=== PATIENT | male | born 1960 | race Caucasian/White ===

== ENCOUNTER 2016-10-12 12:14 | Inpatient (IN) | payer BC ==
[~2016-10-12] VITALS: Ht 188 cm; Wt 112.0 kg
[2016-10-12] MEDS ORDERED: DILTIAZEM BOLUS / DRIP IV STA (16:02)
[2016-10-12 16:06] VITALS: BP 134/96; PULSE 126; TEMP 36.4; O2SAT 97; Ht 188 cm; Wt 112.0 kg
[2016-10-12] MEDS ORDERED: MAGNESIUM HYDROXIDE SUSP 30 ML UDC PO PRN (16:15)
[2016-10-12] MEDS ORDERED: ACETAMINOPHEN 325 MG TAB PO PRN (16:15)
[2016-10-12] MEDS ORDERED: POLYETHYLENE (MIRALAX) 17 GM PACK PO PRN (16:15)
[2016-10-12] MEDS ORDERED: NITROGLYCERIN 0.4 MG SL PER TAB CHARGE SL PRN (16:15)
[2016-10-12] MEDS ORDERED: ALUMINUM/MAGNESIUM/SIMETH (MAALOX MAX) 30 ML UDC PO PRN (16:15)
[2016-10-12] MEDS ORDERED: ONDANSETRON INJ 2 MG/ML 2 ML VIAL IV PRN (16:15)
[2016-10-12] MEDS ORDERED: NICOTINE 14 MG/24 HR TDSY TD PRN (16:30)
[2016-10-12] MEDS: DILTIAZEM HCL INJ 125 MG in DEXTROSE 5% 100ML IV PRN (16:34)
[2016-10-12] MEDS ORDERED: TEST1INJ2 IM (16:36)
[2016-10-12] MEDS ORDERED: ZINC1CAP PO (16:36)
[2016-10-12] MEDS ORDERED: ASCO10003 PO (16:36)
[2016-10-12] MEDS ORDERED: MULT-589 PO (16:36)
[2016-10-12] MEDS ORDERED: TPRSR100 PO (16:36)
[2016-10-12] MEDS ORDERED: SIMV20TA5 PO (16:36)
[2016-10-12] MEDS ORDERED: OMEG340C PO (16:36)
[2016-10-12] MEDS ORDERED: DILT120C PO (16:36)
[2016-10-12] MEDS ORDERED: OMEP20CA9 PO (16:36)
[2016-10-12] MEDS ORDERED: EFFSR/75 PO (16:36)
[2016-10-12] MEDS ORDERED: ASPEC325 PO (16:36)
[2016-10-12] MEDS ORDERED: MGNO400 PO (16:36)
[2016-10-12] MEDS ORDERED: SODIUM CHLORIDE 0.9% 1000ML 1,000 ML IV SCH (16:45)
--- NOTE | 2016-10-12 16:50 | History and Physical ---
History & Physical Date of Service Oct 12, 2016. History & Physical admit #[id number]
[2016-10-12] MEDS: MAGNESIUM SULFATE 1GM / D5W 1 GM in PREMIXED IN D5W 100 ML IV SCH ×2 (17:06→17:57)
[2016-10-12] MEDS ORDERED: POTASSIUM CHLORIDE 10 MEQ TABCR PO ONE (17:15)
[2016-10-12] MEDS: SODIUM CHLOR 0.45% + 20MEQ KCL 1,000 ML IV SCH (17:34)
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
[2016-10-12 19:04] LABS: INR 1.4 (0.9-1.1); PARTIAL THROMBOPLASTIN RATIO 1.1; PROTHROMBIN TIME (PATIENT) 15.4 SECONDS (9.0-12.0)
[2016-10-12 19:56] VITALS: BP 147/79; PULSE 119; TEMP 36.6; O2SAT 95
[2016-10-12 19:58] VITALS: PULSE 74; O2SAT 96
[2016-10-12] MEDS: ALBUT/IPRATROP 3MG/0.5MG NEB 3 ML VIAL INH SCH (19:58)
[2016-10-12] MEDS: OMEGA-3 (PURIFIED FISH OIL) 1 GM CAP PO SCH (20:13)
[2016-10-12] MEDS: MAGNESIUM OXIDE 400 MG TAB PO SCH (20:13)
[2016-10-12] MEDS: METOPROLOL SUCC 50MG EXT REL TAB PO SCH (20:13)
[2016-10-12] MEDS: ZINC SULFATE 220 MG CAP PO SCH (20:14)
[2016-10-12] MEDS: SIMVASTATIN 20 MG TAB PO SCH (20:14)
[2016-10-12] MEDS: ENOXAPARIN 40 MG/0.4 ML SYR SC SCH (21:05)
[2016-10-12] MEDS ORDERED: hydrOXYzine HCL 10 MG TAB PO STA (22:32)
[2016-10-13] VITALS (15 sets, daily range): BP systolic 120–138; BP diastolic 78–92; PULSE 81–116; TEMP 36.2–36.4; O2SAT 91–99
[2016-10-13] MEDS: DILTIAZEM HCL INJ 125 MG in DEXTROSE 5% 100ML IV PRN ×2 (00:29→09:56)
[2016-10-13] MEDS: SODIUM CHLOR 0.45% + 20MEQ KCL 1,000 ML IV SCH ×3 (04:00→22:42)
[2016-10-13] MEDS ORDERED: NURSING VERBAL MED ORDER ONE (06:30)
[2016-10-13] MEDS ORDERED: BENZONATATE 100MG CAP PO PRN (06:30)
[2016-10-13 07:16] LABS: BASO % 0.2 %; BASO ABS # 0.02 K/uL (0-0.2); COMPLETE YES; HEMATOCRIT 45.8 % (42-52); IG% 0.7 %; LYMPH ABS # 1.24 K/uL (1.2-3.4); MEAN CORPUSCULAR HEMOGLOBIN 29.5 pg (25-34); MEAN CORPUSCULAR HGB CONC 32.1 g/dl (32-36); MEAN PLATELET VOLUME 9.8 fL (7.4-10.4); MONO % 5.1 %; PLATELET COUNT 305 K/uL (130-400); RED BLOOD COUNT 4.98 M/uL (4.7-6.1); WHITE BLOOD COUNT 12.42 K/uL (4.8-10.8)
[2016-10-13] MEDS: ALBUT/IPRATROP 3MG/0.5MG NEB 3 ML VIAL INH SCH ×4 (07:32→20:07)
[2016-10-13 07:44] LABS: BUN/CREATININE RATIO 19.5 (10-20); CALCIUM 8.2 mg/dl (8.5-10.1); CREATININE 0.76 mg/dl (0.60-1.40); POTASSIUM 4.8 mmol/L (3.5-5.1)
[2016-10-13 07:55] LABS: THYROID STIMULATING HORMONE 0.185 uIu/ml (0.300-4.500)
[2016-10-13] MEDS: ASPIRIN 325 MG ECTAB PO SCH (08:00)
[2016-10-13] MEDS: VENLAFAXINE HCL XR 75 MG CAPXR PO SCH (08:00)
[2016-10-13 08:01] LABS: ESTIMATED AVERAGE GLUCOSE 146 mg/dl; HA1C FLAG Normal (Normal)
[2016-10-13] MEDS: MAGNESIUM OXIDE 400 MG TAB PO SCH ×2 (08:01→20:03)
[2016-10-13] MEDS: OMEGA-3 (PURIFIED FISH OIL) 1 GM CAP PO SCH ×3 (08:01→20:04)
[2016-10-13] MEDS: MULTIVITAMIN TAB PO SCH (08:01)
[2016-10-13] MEDS: PANTOprazole SOD 40 MG TAB PO SCH (08:02)
[2016-10-13] MEDS: METOPROLOL SUCC 50MG EXT REL TAB PO SCH ×2 (08:02→20:04)
[2016-10-13] MEDS: ASCORBIC ACID 500 MG TAB PO SCH (08:03)
[2016-10-13] MEDS: ZINC SULFATE 220 MG CAP PO SCH ×2 (08:03→20:04)
[2016-10-13] MEDS: LEVOFLOXACIN 750 MG TAB PO SCH (09:51)
--- NOTE | 2016-10-13 16:13 | Cardiology Consultation ---
Cardiology Consultation Date of Consultation: Oct 13, 2016. Requesting Physician: Dr. Carter Reason for Consultation: AF with RVR Pt evaluation today including: conversation w/ patient, physical exam, chart review, lab review, review of studies, review of inpatient medication list History of Present Illness This is a very pleasant 56 yo gentleman with a history of what sounds like SVT for which he had ablation in [place] around 1991, that sounds as though it was successful and he has had no recurrence of that particular arrhythmia. He has however had AF since about 8 yrs ago, it does not bother him much but he believes it to be permanent. He has been followed in [place], he has been on Xarelto in the past but it was stopped evidently due to a low chads-vasc score, not for bleeding.. He had a cardiac catheterization performed in 2012 with normal coronaries. He is not generally aware of his arrhythmia. He presented with 2 wks of SOB, thought to be URI I think. Transferred for care. Now somewhat SOB with exertion, no palpitations. No CP. Past Medical/Surgical History (1) Afib (2) Hyperlipidemia (3) Status post ablation of accessory bypass tract (4) History of left heart catheterization (5) Tobacco abuse Family History Patient reports no known family medical history. Social History Smoking Status: Current Every Day Smoker History of Alcohol Use: Yes (DRINKS 2-3 TIMES A WEEK) Review of Systems Constitutional: No fever, No weight loss, No weakness Respiratory: + see HPI, + dyspnea on exertion, No cough, No wheezing, No shortness of breath Cardiac: + see HPI, + palpitations, No chest pain, No orthopnea, No PND, No edema Abdomen: No pain, No nausea, No vomiting, No diarrhea, No GI bleeding Male : No urinary frequency, No nocturia more than once/night, No slowing stream, No sexual dysfunction Neurologic: No paralysis, No weakness, No numbness/tingling, No balance problems Heme: No abnormal bleeding/bruising, No clotting problems Endo: No fatigue Skin: No problem reported All Other Systems: Reviewed and Negative Allergies Coded Allergies: No Known Allergies (Unverified , 10/12/16) Medications Current Inpatient Medications Medications (Trade) Dose Ordered Sig/Jackie Route Start Time Stop Time Status Last Admin Dose Admin Enoxaparin Sodium (Lovenox Inj) 40 mg DAILY@2000 SC 10/12/16 20:00 11/11/16 19:59 10/12/16 21:05 40 MG Acetaminophen (Tylenol Tab) 650 mg Q4H PRN PO 10/12/16 16:15 11/11/16 16:14 Al Hydrox/Mg Hydrox/Simethicone (Maalox Max Susp) 15 ml Q4H PRN PO 10/12/16 16:15 11/11/16 16:14 Magnesium Hydroxide (Milk Of Magnesia Susp) 30 ml Q12H PRN PO 10/12/16 16:15 11/11/16 16:14 Ondansetron HCl (Zofran Inj) 4 mg Q6H PRN IV 10/12/16 16:15 11/11/16 16:14 Nitroglycerin (Nitrostat Tab) 0.4 mg UD PRN SL 10/12/16 16:15 11/11/16 16:14 Polyethylene (Miralax Powder Packet) 17 gm DAILY PRN PO 10/12/16 16:15 11/11/16 16:14 Diltiazem HCl 125 mg/Dextrose 125 ml @ 0 mls/hr Q0M PRN IV 10/12/16 16:15 11/11/16 16:14 10/13/16 09:56 15 MLS/HR Levofloxacin (Levaquin Tab) 750 mg DAILY@11 PO 10/13/16 11:00 10/19/16 10:59 10/13/16 09:51 750 MG Albuterol/ Ipratropium (Duoneb) 3 ml QIDR INH 10/12/16 20:00 11/11/16 19:59 10/13/16 15:25 3 ML Nicotine (Nicoderm Cq 14MG Patch) 1 patch QAM PRN TD 10/12/16 16:30 11/11/16 16:29 Aspirin (Ecotrin Tab) 325 mg DAILY PO 10/13/16 09:00 11/12/16 08:59 10/13/16 08:00 325 MG Magnesium Oxide (Mag-Ox Tab) 400 mg BID PO 10/12/16 21:00 11/11/16 20:59 10/13/16 08:01 400 MG Multivitamins (Multivitamin Tab) 1 tab DAILY PO 10/13/16 09:00 11/12/16 08:59 10/13/16 08:01 1 TAB Simvastatin (Zocor Tab) 20 mg HS PO 10/12/16 21:00 11/11/16 20:59 10/12/16 20:14 20 MG Venlafaxine HCl (effeXOR EXTENDED REL CAP) 75 mg DAILY PO 10/13/16 09:00 11/12/16 08:59 10/13/16 08:00 75 MG Zinc Sulfate (Zinc Sulfate Cap) 220 mg BID PO 10/12/16 21:00 11/11/16 20:59 10/13/16 08:03 220 MG Ascorbic Acid (Vitamin C Tab) 1,000 mg DAILY PO 10/13/16 09:00 11/12/16 08:59 10/13/16 08:03 1,000 MG Metoprolol Succinate (Toprol Xl Tab) 100 mg BID PO 10/12/16 21:00 11/11/16 20:59 10/13/16 08:02 100 MG Fish Oil ([place]-3 (Purified Fish Oil) Cap) 1 gm TID PO 10/12/16 21:00 11/11/16 20:59 10/13/16 08:01 1 GM Pantoprazole Sodium (Protonix Tab) 40 mg DAILY PO 10/13/16 09:00 11/12/16 08:59 10/13/16 08:02 40 MG Potassium Chloride/Sodium Chloride 1,000 ml @ 100 mls/hr Q10H IV 10/12/16 17:00 11/11/16 16:59 10/13/16 14:16 100 MLS/HR Benzonatate (Tessalon Perles Cap) 100 mg TID PRN PO 10/13/16 06:30 11/12/16 06:29 10/13/16 06:36 100 MG Physical Exam Vital Signs Past 12 Hours Date Time Temp Pulse Resp B/P (MAP) Pulse Ox O2 Delivery O2 Flow Rate FiO2 10/13/16 15:27 90 16 95 Nasal Cannula 2.0 10/13/16 12:24 36.4 92 19 138/91 (107) 93 Nasal Cannula 2.0 10/13/16 12:00 96 Nasal Cannula 2.0 10/13/16 11:13 88 16 94 Nasal Cannula 2.0 10/13/16 08:00 95 Nasal Cannula 2.0 10/13/16 07:51 36.3 91 20 127/84 (98) 94 Nasal Cannula 2.0 10/13/16 07:32 81 14 96 Nasal Cannula 2.0 10/13/16 04:17 36.4 110 18 120/88 (99) 93 Nasal Cannula 10/13/16 04:00 Nasal Cannula 2.0 Constitutional: General Apperance: heathly-appearing Level of Distress: NAD Psychiatric: Mental Status: active & alert Head: normocephalic Eyes: EOM: EOMI ENMT: normal ENT inspection, hearing grossly normal Neck: supple, no masses Lungs: Respiratory effort: dyspneic Auscultation: breath sounds normal, no wheezing Cardiovascular: Heart Auscultation: no murmurs, no rubs, no gallops, tachycardia, irregular rate rhythm Peripheral Pulses: Bruits: none appreciated Abdomen: Bowel Sounds: normal Inspection & Palpation: soft, no tenderness, guarding & rebound, no masses Musculoskeletal: normal strength (5/5 throughout) Extremities: no edema Neurologic: Cranial Nerves: grossly intact Sensation: grossly intact Data Laboratory Results: Last 24 Hours Test 10/12/16 18:45 10/13/16 06:53 Prothrombin Time 15.4 SECONDS Prothromb Time International Ratio 1.4 Activated Partial Thromboplast Time 29.6 SECONDS Partial Thromboplastin Ratio 1.1 White Blood Count 12.42 K/uL Red Blood Count 4.98 M/uL Hemoglobin 14.7 g/dL Hematocrit 45.8 % Mean Corpuscular Volume 92.0 fL Mean Corpuscular Hemoglobin 29.5 pg Mean Corpuscular Hemoglobin Concent 32.1 g/dl Platelet Count 305 K/uL Mean Platelet Volume 9.8 fL Neutrophils (%) (Auto) 84.0 % Lymphocytes (%) (Auto) 10.0 % Monocytes (%) (Auto) 5.1 % Eosinophils (%) (Auto) 0.0 % Basophils (%) (Auto) 0.2 % Neutrophils # (Auto) 10.44 K/uL Lymphocytes # (Auto) 1.24 K/uL Monocytes # (Auto) 0.63 K/uL Eosinophils # (Auto) 0.00 K/uL Basophils # (Auto) 0.02 K/uL RDW Standard Deviation 52.6 fL RDW Coefficient of Variation 15.8 % Immature Granulocyte % (Auto) 0.7 % Immature Granulocyte # (Auto) 0.09 K/uL Sodium Level 139 mmol/L Potassium Level 4.8 mmol/L Chloride Level 105 mmol/L Carbon Dioxide Level 26 mmol/L Anion Gap 8.0 mmol/L Blood Urea Nitrogen 15 mg/dl Creatinine 0.76 mg/dl Est Creatinine Clear Calc Drug Dose 149.8 ml/min Estimated GFR () 119.0 Estimated GFR (Non- 102.7 BUN/Creatinine Ratio 19.5 Random Glucose 141 mg/dl Estimated Average Glucose 146 mg/dl Hemoglobin A1c 6.7 % Calcium Level 8.2 mg/dl Magnesium Level 2.0 mg/dl 25-Hydroxy Vitamin D Total 27.5 ng/ml Thyroid Stimulating Hormone (TSH) 0.185 uIu/ml ECG: AF with rapid V response at [place], no acute changes Telemetry reviewed: AF, HR averaging over 100 Assessment & Plan 1. SOB: Need to rule out cardiac cause, cardiomyopathy, etc 2. AF: Pt believes he has permanent AF. In that case no indication for conversion, but need rate control, especially if LVEF is low. TSH is now low, but I doubt his AF is due to hyperthyroidism, but maybe increased HR now is. Will add digoxin. 3. Lung disease: Seems to have lung disease, may be contributory 4. Anticoagulation: I don't know what his CARMEN-Vasc score is, will calculate after echo, he does have a HBP history. May be low enough he doesn't need anticoagulation. Will follow, further recommendations as data comes in Thank You
[2016-10-13] MEDS ORDERED: DIGOXIN IV 250 MCG in SYRINGE 9 ML IV ONE (16:45)
[2016-10-13] MEDS ORDERED: DIGOXIN 0.25 MG TAB PO ONE ×2 (18:00→22:00)
[2016-10-13] MEDS: SIMVASTATIN 20 MG TAB PO SCH (20:03)
[2016-10-13] MEDS: ENOXAPARIN 40 MG/0.4 ML SYR SC SCH (20:05)
--- NOTE | 2016-10-13 20:57 | Progress Note ---
Subjective Date of Service: Oct 13, 2016. Subjective Pt evaluation today including: conversation w/ patient, conversation w/ family , physical exam, chart review, lab review, review of studies, review of inpatient medication list Review of Systems Constitutional: No see HPI, No fever, No chills, No sweats, No weight loss, No weakness, No fatigue, No problem reported Eyes: No see HPI, No worsening of vision, No eye pain, No redness, No discharge , No diplopia, No problem reported ENT: No see HPI, No hearing loss, No unusual epistaxis, No nasal symptoms, No sore throat, No tinnitus, No dental problems, No trouble swallowing, No problem reported Respiratory: + cough, + sputum, + shortness of breath, + dyspnea on exertion Cardiac: No see HPI, No chest pain, No orthopnea, No PND, No edema, No claudication, No palpitations, No problem reported Abdomen: No see HPI, No pain, No nausea, No vomiting, No diarrhea, No constipation, No GI bleeding, No problem reported Musculoskeletal: No see HPI, No joint pain, No muscle pain, No swelling, No calf pain, No problem reported Neurologic: No see HPI, No memory loss, No paralysis, No weakness, No numbness/ tingling, No vertigo, No balance problems, No problem reported Psychiatric: No see HPI, No depression symptoms, No anhedonism, No anxiety, No insomnia, No substance abuse, No problem reported Heme: No see HPI, No abnormal bleeding/bruising, No clotting problems, No swollen lymph nodes, No night sweats, No problem reported Endo: No see HPI, No fatigue, No excessive thirst, No excessive urination, No problem reported Skin: No see HPI, No rash, No itch, No new/changing skin lesions, No color change, No bleeding, No problem reported Objective Vital Signs Date Time Temp Pulse Resp B/P (MAP) Pulse Ox O2 Delivery O2 Flow Rate FiO2 10/13/16 20:10 94 16 99 Nasal Cannula 2.0 10/13/16 19:17 36.4 94 24 131/92 (105) 94 Nasal Cannula 2.0 10/13/16 16:57 111 10/13/16 16:56 111 10/13/16 16:00 95 Nasal Cannula 2.0 10/13/16 15:37 36.2 103 22 128/84 (99) 96 Nasal Cannula 2.0 10/13/16 15:27 90 16 95 Nasal Cannula 2.0 10/13/16 12:24 36.4 92 19 138/91 (107) 93 Nasal Cannula 2.0 10/13/16 12:00 96 Nasal Cannula 2.0 10/13/16 11:13 88 16 94 Nasal Cannula 2.0 10/13/16 08:00 95 Nasal Cannula 2.0 10/13/16 07:51 36.3 91 20 127/84 (98) 94 Nasal Cannula 2.0 10/13/16 07:32 81 14 96 Nasal Cannula 2.0 10/13/16 04:17 36.4 110 18 120/88 (99) 93 Nasal Cannula 10/13/16 04:00 Nasal Cannula 2.0 10/13/16 00:14 36.4 116 18 128/80 (96) 94 Nasal Cannula 10/13/16 00:01 Nasal Cannula 2.0 Physical Exam General Appearance: WD/WN, + mild distress, + obese Eyes: normal inspection, EOMI ENT: normal ENT inspection, hearing grossly normal Neck: supple Respiratory/Chest: chest non-tender, + decreased breath sounds, + crackles Cardiovascular: + tachycardia, + irregularly irregular Abdomen: normal bowel sounds, non tender, soft Extremities: normal range of motion, non-tender, normal inspection, no pedal edema 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, no motor/sensory deficits, alert, normal mood/affect, oriented x 3 Skin: normal color, warm/dry, no rash Laboratory Results Last 24 Hours Test 10/13/16 06:53 White Blood Count 12.42 K/uL Red Blood Count 4.98 M/uL Hemoglobin 14.7 g/dL Hematocrit 45.8 % Mean Corpuscular Volume 92.0 fL Mean Corpuscular Hemoglobin 29.5 pg Mean Corpuscular Hemoglobin Concent 32.1 g/dl Platelet Count 305 K/uL Mean Platelet Volume 9.8 fL Neutrophils (%) (Auto) 84.0 % Lymphocytes (%) (Auto) 10.0 % Monocytes (%) (Auto) 5.1 % Eosinophils (%) (Auto) 0.0 % Basophils (%) (Auto) 0.2 % Neutrophils # (Auto) 10.44 K/uL Lymphocytes # (Auto) 1.24 K/uL Monocytes # (Auto) 0.63 K/uL Eosinophils # (Auto) 0.00 K/uL Basophils # (Auto) 0.02 K/uL RDW Standard Deviation 52.6 fL RDW Coefficient of Variation 15.8 % Immature Granulocyte % (Auto) 0.7 % Immature Granulocyte # (Auto) 0.09 K/uL Sodium Level 139 mmol/L Potassium Level 4.8 mmol/L Chloride Level 105 mmol/L Carbon Dioxide Level 26 mmol/L Anion Gap 8.0 mmol/L Blood Urea Nitrogen 15 mg/dl Creatinine 0.76 mg/dl Est Creatinine Clear Calc Drug Dose 149.8 ml/min Estimated GFR () 119.0 Estimated GFR (Non- 102.7 BUN/Creatinine Ratio 19.5 Random Glucose 141 mg/dl Estimated Average Glucose 146 mg/dl Hemoglobin A1c 6.7 % Calcium Level 8.2 mg/dl Magnesium Level 2.0 mg/dl 25-Hydroxy Vitamin D Total 27.5 ng/ml Thyroid Stimulating Hormone (TSH) 0.185 uIu/ml Assessment and Plan 56 years old man with Hx of OSWALDO S/P laryngeoplasty many years ago, transferred from [place] with Afib RVR and CAP. CAP continue levofloxacin obtain blood and sputum Cx CXR urine legionella strept screen Afib RVR continue cardizem drip / metoprolol / digoxin cardiology consult Hyperlipidemia. Continue his omega-3, switch simvastatin to lipitor Hypotestosterone. continue supplement as an outpatient Anxiety. Continue his venlafaxine. Deep venous thrombosis prophylaxis, Lovenox. Mediastinal adenopathy,likely reactive Tobacco abuse. Hopefully, he will be able to quit smoking. Nicotine Mild nonfasting hyperglycemia. A1c is 6.7
[2016-10-14] VITALS (9 sets, daily range): BP systolic 126–142; BP diastolic 79–103; PULSE 71–107; TEMP 36.2–36.5; O2SAT 90–98
[2016-10-14] MEDS: DILTIAZEM HCL INJ 125 MG in DEXTROSE 5% 100ML IV PRN ×3 (02:11→20:17)
[2016-10-14 07:22] LABS: BASO % 0.1 %; BASO ABS # 0.02 K/uL (0-0.2); COMPLETE YES; EOS % 0.4 %; HEMATOCRIT 44.1 % (42-52); IG% 0.9 %; LYMPH % 17.4 %; LYMPH ABS # 2.57 K/uL (1.2-3.4); MEAN CELL VOLUME 91.7 fL (80-100); MEAN CORPUSCULAR HEMOGLOBIN 30.8 pg (25-34); MEAN CORPUSCULAR HGB CONC 33.6 g/dl (32-36); MEAN PLATELET VOLUME 9.8 fL (7.4-10.4); MONO % 8.5 %; NEUT % 72.7 %; PLATELET COUNT 303 K/uL (130-400); RED BLOOD COUNT 4.81 M/uL (4.7-6.1); WHITE BLOOD COUNT 14.79 K/uL (4.8-10.8)
[2016-10-14] MEDS: ALBUT/IPRATROP 3MG/0.5MG NEB 3 ML VIAL INH SCH ×4 (07:22→19:04)
[2016-10-14 07:58] LABS: ALB/GLOB RATIO 0.6 (0.9-2); BUN/CREATININE RATIO 20.6 (10-20); CALCIUM 8.6 mg/dl (8.5-10.1); CREATININE 0.88 mg/dl (0.60-1.40); MAGNESIUM 1.7 mg/dl (1.8-2.4); PHOSPHORUS 2.5 mg/dl (2.5-4.9); POTASSIUM 4.6 mmol/L (3.5-5.1)
[2016-10-14 08:00] LABS: CHOLESTEROL/HDL RATIO 4.8
[2016-10-14] MEDS: ZINC SULFATE 220 MG CAP PO SCH ×2 (08:24→19:35)
[2016-10-14] MEDS: MULTIVITAMIN TAB PO SCH (08:25)
[2016-10-14] MEDS: ASCORBIC ACID 500 MG TAB PO SCH (08:25)
[2016-10-14] MEDS: PANTOprazole SOD 40 MG TAB PO SCH (08:25)
[2016-10-14] MEDS: METOPROLOL SUCC 50MG EXT REL TAB PO SCH ×2 (08:25→19:36)
[2016-10-14] MEDS: ASPIRIN 325 MG ECTAB PO SCH (08:25)
[2016-10-14] MEDS: MAGNESIUM OXIDE 400 MG TAB PO SCH ×2 (08:25→19:36)
[2016-10-14] MEDS: ATORVASTATIN 20 MG TAB PO SCH (08:25)
[2016-10-14] MEDS: VENLAFAXINE HCL XR 75 MG CAPXR PO SCH (08:25)
[2016-10-14] MEDS: OMEGA-3 (PURIFIED FISH OIL) 1 GM CAP PO SCH ×3 (08:25→19:35)
[2016-10-14] MEDS: SODIUM CHLOR 0.45% + 20MEQ KCL 1,000 ML IV SCH ×2 (08:27→18:40)
[2016-10-14] MEDS: LEVOFLOXACIN 750 MG TAB PO SCH (11:07)
--- NOTE | 2016-10-14 15:41 | Cardiology Follow-Up ---
Subjective Date of Service: Oct 14, 2016. Pt evaluation today including: conversation w/ patient, physical exam, lab review, review of studies, review of inpatient medication list History of Present Illness He feels better today, but still somewhat short of breath. Overall the complaints otherwise. Social History Smoking Status: Current Every Day Smoker History of Alcohol Use: Yes (DRINKS 2-3 TIMES A WEEK) Review of Systems Respiratory: + sputum, + shortness of breath, + dyspnea on exertion Cardiac: No see HPI, No chest pain, No orthopnea, No PND, No edema, No claudication, No palpitations, No problem reported Medications Cardiovascular: Item Value Date Time Atorvastatin 20 mg 10/14/16 0900 Calcium QAM/PO 10/14/16 0825 (Lipitor Tab) Aspirin 325 mg 10/13/16 0900 (Ecotrin Tab) DAILY/PO 10/14/16 0825 Diltiazem HCl 125 125 ml @ 0 mls/hr 10/12/16 1615 mg/Dextrose .Q0M PRN/IV 10/14/16 1109 Objective Vital Signs Past 12 Hours Date Time Temp Pulse Resp B/P (MAP) Pulse Ox O2 Delivery O2 Flow Rate FiO2 10/14/16 15:22 86 16 92 Nasal Cannula 2.0 10/14/16 12:00 Room Air 10/14/16 11:15 100 16 98 Nasal Cannula 2.0 10/14/16 10:57 36.5 91 20 136/94 (108) 91 2.0 10/14/16 08:00 Room Air 10/14/16 07:34 36.5 101 18 130/103 (112) 90 Room Air 142/97 (112) 10/14/16 07:22 71 16 93 Nasal Cannula 2.0 10/14/16 04:19 36.4 100 20 126/88 (101) 91 Room Air 10/14/16 04:00 Room Air Last Recorded Weight-Kilograms: 117.100 Intake & Output 8-Hour Column 10/14/16 10/15/16 10/15/16 16:00 00:00 08:00 Intake Total 1659 ml Output Total 625 ml Balance 1034 ml 24-Hour Column 10/15/16 08:00 Intake Total 1659 ml Output Total 625 ml Balance 1034 ml Physical Exam Constitutional: Level of Distress: mild distress Lungs: Respiratory effort: dyspneic Auscultation: expiratory wheezing Cardiovascular: Heart Auscultation: no murmurs, no rubs, no gallops, tachycardia, irregular rate rhythm Peripheral Pulses: Bruits: none appreciated Extremities: no edema Data Laboratory Results: Last 24 Hours Test 10/14/16 06:39 White Blood Count 14.79 K/uL Red Blood Count 4.81 M/uL Hemoglobin 14.8 g/dL Hematocrit 44.1 % Mean Corpuscular Volume 91.7 fL Mean Corpuscular Hemoglobin 30.8 pg Mean Corpuscular Hemoglobin Concent 33.6 g/dl Platelet Count 303 K/uL Mean Platelet Volume 9.8 fL Neutrophils (%) (Auto) 72.7 % Lymphocytes (%) (Auto) 17.4 % Monocytes (%) (Auto) 8.5 % Eosinophils (%) (Auto) 0.4 % Basophils (%) (Auto) 0.1 % Neutrophils # (Auto) 10.74 K/uL Lymphocytes # (Auto) 2.57 K/uL Monocytes # (Auto) 1.26 K/uL Eosinophils # (Auto) 0.06 K/uL Basophils # (Auto) 0.02 K/uL RDW Standard Deviation 53.5 fL RDW Coefficient of Variation 16.1 % Immature Granulocyte % (Auto) 0.9 % Immature Granulocyte # (Auto) 0.14 K/uL Sodium Level 138 mmol/L Potassium Level 4.6 mmol/L Chloride Level 105 mmol/L Carbon Dioxide Level 26 mmol/L Anion Gap 7.0 mmol/L Blood Urea Nitrogen 18 mg/dl Creatinine 0.88 mg/dl Est Creatinine Clear Calc Drug Dose 129.0 ml/min Estimated GFR () 112.1 Estimated GFR (Non- 96.7 BUN/Creatinine Ratio 20.6 Random Glucose 97 mg/dl Calcium Level 8.6 mg/dl Phosphorus Level 2.5 mg/dl Magnesium Level 1.7 mg/dl Total Bilirubin 0.5 mg/dl Aspartate Amino Transf (AST/SGOT) 30 U/L Alanine Aminotransferase (ALT/SGPT) 40 U/L Alkaline Phosphatase 116 U/L Total Protein 6.6 gm/dl Albumin 2.5 gm/dl Globulin 4.1 gm/dl Albumin/Globulin Ratio 0.6 Triglycerides Level 123 mg/dl Cholesterol Level 145 mg/dl HDL Cholesterol 30 mg/dl LDL Cholesterol, Calculated 90 mg/dl VLDL Cholesterol, Calculated 25 mg/dl Cholesterol/HDL Ratio 4.8 Digoxin Level 0.7 ng/ml Telemetry reviewed: Remains in atrial fibrillation, heart rate a little bit better but still somewhat fast at times. Assessment and Plan 1. SOB: Need to rule out cardiac cause, cardiomyopathy, etc. Echo results pending. 2. AF: Pt believes premanent AF. In that case no indication for conversion, but need rate control. TSH is now low, but I doubt his AF is due to hyperthyroidism , but maybe increased HR now is. His digoxin level is a little bit on the low side but acceptable, I will add a daily digoxin dose. I'm going to start oral diltiazem tomorrow morning and stop the intravenous after the oral dose.. 3. Lung disease: Seems to have lung disease with expiratory wheezing today, may be contributory to his atrial fibrillation 4. Anticoagulation: I don't know what his CARMEN-Vasc score is, will calculate after echo, not sure about CHF. His score may be low enough he doesn't need anticoagulation. Thank You
[2016-10-14] MEDS: DIGOXIN 0.25 MG TAB PO SCH (16:31)
--- NOTE | 2016-10-14 17:21 | ECHOCARDIOGRAM REPORT ---
*NOTICE TO RECEIVING LIBERTARIAN AGENCY This information is strictly Confidential and protected under [place] law. [place] law prohibits you from making any further disclosure of this information unless further disclosure is expressly permitted by the written consent of the person to whom it pertains or is authorized by law. A general authorization for the release of medical or other information is not sufficient for this purpose. Hospital accepts no responsibility if the information is made available to any other person, INCLUDING THE PATIENT. Interpretation Summary * Name: ISRRAEL ALARCON Study Date: 10/14/2016 01:47 PM BP: 126/88 mmHg * Patient Location: .2T\S\S239\S\2 HR: 95 * : 1960 (M/d/yyyy) Gender: Male Height: 74 in * Age: 56 yrs Ethnicity: CA Weight: 259 lb * Ordering Physician: Grupo Salgado * Referring Physician: Kenney Saul D.O. * Performed By: Linsey Merchant RDCS * * Reason For Study: Atrial fibrillation * BSA: 2.4 m2 * Low normal overall left ventricular systolic function. * Mild concentric left ventricular hypertrophy. * Moderate biatrial dilatation. * Trace aortic and pulmonic regurgitation. * Trace mitral regurgitation. * Mild to moderate tricuspid regurgitation. * Moderately elevated estimated right ventricular systolic pressure. * Elevated central venous pressure. Procedure Details * A complete two-dimensional transthoracic echocardiogram was performed (2D, M-mode, Doppler and color flow Doppler). * A contrast injection of Definity was performed to improve assessment of LV function. * Contrast was injected into an intravenous site in the left arm. * One vial of Definity ultrasound contrast was diluted in normal saline to a total volume of 10 ml. A total of '2' ml of solution was administered during imaging. * Lot # [id number] of Definity utilized for procedure. * Expiration date DEC 03. * The attending nurse who injected the contrast agent was Sundeep Marmolejo RN. Left Ventricle * The left ventricle is normal in size. * There is mild concentric left ventricular hypertrophy. * Ejection Fraction = 50-55%. * Left ventricular systolic function is low normal. * No regional wall motion abnormalities noted. Right Ventricle * The right ventricle is normal size. * The right ventricular systolic function is reduced as assessed by tricuspid annular plane systolic excursion (TAPSE) (TAPSE <1.6 cm). Atria * The left atrium is moderately dilated. * The right atrium is moderately dilated. * There is no evidence of atrial septal defect, but resolution does not allow assessment for a patent foramen ovale. Mitral Valve * The mitral valve is normal. * There is no mitral valve stenosis. * There is trace mitral regurgitation. Tricuspid Valve * The tricuspid valve is normal. * There is no tricuspid stenosis. * There is mild to moderate tricuspid regurgitation. * Right ventricular systolic pressure is elevated at 40-50mmHg. Aortic Valve * The aortic valve is trileaflet. * The aortic valve opens well. * Aortic stenosis is absent. * Trace aortic regurgitation. Pulmonic Valve * The pulmonary valve is inadequately visualized, but the Doppler data is adequate for interpretation. * There is no pulmonic valvular stenosis. * Trace pulmonic valvular regurgitation. Great Vessels * The aortic root is normal size. Pericardium/Pleural * There is no pericardial effusion. Great Vessels * The inferior vena cava is mildly dilated. MMode 2D Measurements and Calculations IVSd 1.4 cm LVIDd 4.5 cm LVIDs 3.2 cm LVPWd 1.3 cm IVS/LVPW 1.1 FS 28.5 % EDV(Teich) 92.0 ml ESV(Teich) 41.3 ml EF(Teich) 55.2 % EDV(cubed) 90.6 ml ESV(cubed) 33.1 ml EF(cubed) 63.5 % LV mass(C)d 238.5 grams LV mass(C)dI 98.3 grams/m\S\2 CO(Teich) 5.8 l/min CI(Teich) 2.4 l/min/m\S\2 SV(Teich) 50.8 ml SI(Teich) 20.9 ml/m\S\2 CO(cubed) 6.6 l/min CI(cubed) 2.7 l/min/m\S\2 SV(cubed) 57.5 ml SI(cubed) 23.7 ml/m\S\2 Ao root diam 3.5 cm Ao root area 9.8 cm\S\2 ACS 2.3 cm LA dimension 4.9 cm asc Aorta Diam 3.3 cm LA/Ao 1.4 LVOT diam 2.0 cm LVOT area 3.3 cm\S\2 LVAd ap4 35.0 cm\S\2 LVLd ap4 8.0 cm EDV(MOD-sp4) 126.0 ml LVAs ap4 20.0 cm\S\2 LVLs ap4 6.3 cm ESV(MOD-sp4) 53.3 ml EF(MOD-sp4) 57.7 % LVAd ap2 38.2 cm\S\2 LVLd ap2 8.4 cm EDV(MOD-sp2) 143.0 ml LVAs ap2 24.1 cm\S\2 LVLs ap2 6.9 cm ESV(MOD-sp2) 69.7 ml EF(MOD-sp2) 51.3 % CO(MOD-sp4) 8.3 l/min CI(MOD-sp4) 3.4 l/min/m\S\2 SV(MOD-sp4) 72.7 ml SI(MOD-sp4) 30.0 ml/m\S\2 CO(MOD-sp2) 8.4 l/min CI(MOD-sp2) 3.4 l/min/m\S\2 SV(MOD-sp2) 73.3 ml SI(MOD-sp2) 30.2 ml/m\S\2 Doppler Measurements and Calculations MV E max zaki 125.1 cm/sec MV dec time 0.13 sec Ao V2 max 130.3 cm/sec Ao max PG 6.8 mmHg Ao max PG (full) 3.2 mmHg COOKIE(V,A) 2.4 cm\S\2 COOKIE(V,D) 2.4 cm\S\2 LV V1 max PG 3.6 mmHg LV V1 max 94.6 cm/sec PA V2 max 75.6 cm/sec PA max PG 2.3 mmHg PA acc slope 310.8 cm/sec\S\2 PA acc time 0.14 sec TR max zaki 324.4 cm/sec PA pr(Accel) 17.2 mmHg
--- NOTE | 2016-10-14 18:15 | Progress Note ---
Subjective Date of Service: Oct 14, 2016. Subjective Pt evaluation today including: conversation w/ patient, physical exam, chart review, lab review, review of studies, conversation w/ product/industry consultant, review of inpatient medication list Review of Systems Constitutional: No see HPI, No fever, No chills, No sweats, No weight loss, No weakness, No fatigue, No problem reported Eyes: No see HPI, No worsening of vision, No eye pain, No redness, No discharge , No diplopia, No problem reported ENT: No see HPI, No hearing loss, No unusual epistaxis, No nasal symptoms, No sore throat, No tinnitus, No dental problems, No trouble swallowing, No problem reported Respiratory: + shortness of breath, No see HPI, No cough, No sputum, No wheezing, No dyspnea on exertion, No dyspnea at rest, No hemoptysis, No problem reported Cardiac: No see HPI, No chest pain, No orthopnea, No PND, No edema, No claudication, No palpitations, No problem reported Breast: No see HPI, No breast lump, No change in shape, No nipple discharge, No breast pain, No problem reported Abdomen: No see HPI, No pain, No nausea, No vomiting, No diarrhea, No constipation, No GI bleeding, No problem reported Musculoskeletal: No see HPI, No joint pain, No muscle pain, No swelling, No calf pain, No problem reported Neurologic: No see HPI, No memory loss, No paralysis, No weakness, No numbness/ tingling, No vertigo, No balance problems, No problem reported Psychiatric: No see HPI, No depression symptoms, No anhedonism, No anxiety, No insomnia, No substance abuse, No problem reported Heme: No see HPI, No abnormal bleeding/bruising, No clotting problems, No swollen lymph nodes, No night sweats, No problem reported Endo: No see HPI, No fatigue, No excessive thirst, No excessive urination, No problem reported Skin: No see HPI, No rash, No itch, No new/changing skin lesions, No color change, No bleeding, No problem reported Objective Vital Signs Date Time Temp Pulse Resp B/P (MAP) Pulse Ox O2 Delivery O2 Flow Rate FiO2 10/14/16 16:31 114 10/14/16 16:00 Room Air 10/14/16 15:52 36.2 83 18 138/85 (102) 92 Nasal Cannula 2.0 10/14/16 15:22 86 16 92 Nasal Cannula 2.0 10/14/16 12:00 Room Air 10/14/16 11:15 100 16 98 Nasal Cannula 2.0 10/14/16 10:57 36.5 91 20 136/94 (108) 91 2.0 10/14/16 08:00 Room Air 10/14/16 07:34 36.5 101 18 130/103 (112) 90 Room Air 142/97 (112) 10/14/16 07:22 71 16 93 Nasal Cannula 2.0 10/14/16 04:19 36.4 100 20 126/88 (101) 91 Room Air 10/14/16 04:00 Room Air 10/14/16 00:00 Room Air 10/13/16 23:49 36.4 88 18 128/78 (95) 91 Room Air 10/13/16 22:42 109 10/13/16 20:57 95 Nasal Cannula 2.0 10/13/16 20:10 94 16 99 Nasal Cannula 2.0 10/13/16 19:17 36.4 94 24 131/92 (105) 94 Nasal Cannula 2.0 Physical Exam General Appearance: no apparent distress, + obese Eyes: normal inspection, EOMI ENT: normal ENT inspection, hearing grossly normal Neck: supple Respiratory/Chest: chest non-tender, lungs clear, normal breath sounds, no respiratory distress Cardiovascular: regular rate, rhythm, no edema, no gallop, no JVD Abdomen: normal bowel sounds, non tender, soft, no organomegaly Extremities: normal range of motion, non-tender, normal inspection, no pedal edema, no calf tenderness Neurologic/Psychiatric: dry ice maker II-XII nml as tested, no motor/sensory deficits, alert, normal mood/affect, oriented x 3 Skin: normal color, warm/dry, no rash Laboratory Results Last 24 Hours Test 10/14/16 06:39 White Blood Count 14.79 K/uL Red Blood Count 4.81 M/uL Hemoglobin 14.8 g/dL Hematocrit 44.1 % Mean Corpuscular Volume 91.7 fL Mean Corpuscular Hemoglobin 30.8 pg Mean Corpuscular Hemoglobin Concent 33.6 g/dl Platelet Count 303 K/uL Mean Platelet Volume 9.8 fL Neutrophils (%) (Auto) 72.7 % Lymphocytes (%) (Auto) 17.4 % Monocytes (%) (Auto) 8.5 % Eosinophils (%) (Auto) 0.4 % Basophils (%) (Auto) 0.1 % Neutrophils # (Auto) 10.74 K/uL Lymphocytes # (Auto) 2.57 K/uL Monocytes # (Auto) 1.26 K/uL Eosinophils # (Auto) 0.06 K/uL Basophils # (Auto) 0.02 K/uL RDW Standard Deviation 53.5 fL RDW Coefficient of Variation 16.1 % Immature Granulocyte % (Auto) 0.9 % Immature Granulocyte # (Auto) 0.14 K/uL Sodium Level 138 mmol/L Potassium Level 4.6 mmol/L Chloride Level 105 mmol/L Carbon Dioxide Level 26 mmol/L Anion Gap 7.0 mmol/L Blood Urea Nitrogen 18 mg/dl Creatinine 0.88 mg/dl Est Creatinine Clear Calc Drug Dose 129.0 ml/min Estimated GFR () 112.1 Estimated GFR (Non- 96.7 BUN/Creatinine Ratio 20.6 Random Glucose 97 mg/dl Calcium Level 8.6 mg/dl Phosphorus Level 2.5 mg/dl Magnesium Level 1.7 mg/dl Total Bilirubin 0.5 mg/dl Aspartate Amino Transf (AST/SGOT) 30 U/L Alanine Aminotransferase (ALT/SGPT) 40 U/L Alkaline Phosphatase 116 U/L Total Protein 6.6 gm/dl Albumin 2.5 gm/dl Globulin 4.1 gm/dl Albumin/Globulin Ratio 0.6 Triglycerides Level 123 mg/dl Cholesterol Level 145 mg/dl HDL Cholesterol 30 mg/dl LDL Cholesterol, Calculated 90 mg/dl VLDL Cholesterol, Calculated 25 mg/dl Cholesterol/HDL Ratio 4.8 Digoxin Level 0.7 ng/ml Assessment and Plan 56 years old man with Hx of OSWALDO S/P laryngeoplasty many years ago, transferred from [facility] with Afib RVR and CAP. CAP continue levofloxacin obtain blood and sputum Cx CXR urine legionella strept screen Bending Afib RVR continue cardizem drip / metoprolol / digoxin cardiology consult appreciated Lead Php Developer plan to switch him tomorrow to oral Cardizem Hyperlipidemia. Continue his omega-3, switch simvastatin to lipitor Hypotestosterone. continue supplement as an outpatient Anxiety. Continue his venlafaxine. Deep venous thrombosis prophylaxis, Lovenox. Mediastinal adenopathy,likely reactive Tobacco abuse. Hopefully, he will be able to quit smoking. Nicotine Mild diabetes A1c is 6.7 Hypertension, patient stated that every time he went to the doctor systolic blood pressure was more than 150 Low TSH needs to be investigated as an outpatient, continue beta darell for now , this needs to be repeated after patient is stable Morbid obesity secondary to increased caloric intake with BMI of 33
--- NOTE | 2016-10-14 19:24 | DIAGNOSTIC IMAGING REPORT ---
CHEST ONE VIEW PORTABLE CLINICAL HISTORY: Shortness of breath. COMPARISON STUDY: No previous studies for comparison. FINDINGS: This exam is mildly compromised by motion artifact. There is moderate enlargement of the cardiac silhouette. Pulmonary vascular congestion is noted. Left lower lung airspace opacity is present. There is a possible trace left pleural effusion. IMPRESSION: 1. Left lower lung airspace opacity which favors pneumonia. Asymmetric edema is considered less likely. Radiographic follow up to ensure resolution is recommended. 2. Moderate cardiomegaly. Pulmonary vascular congestion without overt pulmonary edema. Electronically signed by: Perry Hoffmann M.D. 10/14/2016 7:22 PM Dictated Date/Time: 10/14/2016 7:20 PM
[2016-10-14] MEDS: ENOXAPARIN 40 MG/0.4 ML SYR SC SCH (19:34)
[2016-10-15] VITALS (10 sets, daily range): BP systolic 123–155; BP diastolic 75–94; PULSE 67–95; TEMP 36.4–36.9; O2SAT 89–97
[2016-10-15] MEDS: DILTIAZEM HCL INJ 125 MG in DEXTROSE 5% 100ML IV PRN (02:28)
[2016-10-15] MEDS: SODIUM CHLOR 0.45% + 20MEQ KCL 1,000 ML IV SCH ×2 (03:45→15:00)
[2016-10-15 07:04] LABS: BASO % 0.2 %; BASO ABS # 0.03 K/uL (0-0.2); COMPLETE YES; HEMATOCRIT 44.8 % (42-52); IG% 0.9 %; LYMPH ABS # 1.81 K/uL (1.2-3.4); MEAN CELL VOLUME 91.1 fL (80-100); MEAN CORPUSCULAR HEMOGLOBIN 31.1 pg (25-34); MEAN CORPUSCULAR HGB CONC 34.2 g/dl (32-36); MEAN PLATELET VOLUME 9.6 fL (7.4-10.4); MONO % 8.5 %; NEUT % 75.4 %; PLATELET COUNT 318 K/uL (130-400); RED BLOOD COUNT 4.92 M/uL (4.7-6.1); WHITE BLOOD COUNT 12.95 K/uL (4.8-10.8)
[2016-10-15] MEDS: ALBUT/IPRATROP 3MG/0.5MG NEB 3 ML VIAL INH SCH ×4 (07:14→19:20)
[2016-10-15 07:45] LABS: BUN/CREATININE RATIO 13.2 (10-20); CALCIUM 8.4 mg/dl (8.5-10.1); CREATININE 0.95 mg/dl (0.60-1.40); MAGNESIUM 1.6 mg/dl (1.8-2.4); POTASSIUM 4.3 mmol/L (3.5-5.1)
[2016-10-15 07:48] LABS: ALB/GLOB RATIO 0.6 (0.9-2)
[2016-10-15] MEDS: DILTIAZEM HCL 300 MG CAPCR PO SCH (08:35)
[2016-10-15] MEDS: ZINC SULFATE 220 MG CAP PO SCH ×2 (08:35→20:26)
[2016-10-15] MEDS: ASCORBIC ACID 500 MG TAB PO SCH (08:36)
[2016-10-15] MEDS: OMEGA-3 (PURIFIED FISH OIL) 1 GM CAP PO SCH ×3 (08:36→20:26)
[2016-10-15] MEDS: PANTOprazole SOD 40 MG TAB PO SCH (08:36)
[2016-10-15] MEDS: ASPIRIN 325 MG ECTAB PO SCH (08:36)
[2016-10-15] MEDS: METOPROLOL SUCC 50MG EXT REL TAB PO SCH ×2 (08:36→20:27)
[2016-10-15] MEDS: VENLAFAXINE HCL XR 75 MG CAPXR PO SCH (08:36)
[2016-10-15] MEDS: ATORVASTATIN 20 MG TAB PO SCH (08:36)
[2016-10-15] MEDS: MULTIVITAMIN TAB PO SCH (08:37)
[2016-10-15] MEDS: MAGNESIUM OXIDE 400 MG TAB PO SCH ×3 (08:37→20:26)
--- NOTE | 2016-10-15 09:38 | Cardiology Follow-Up ---
Subjective Date of Service: Oct 15, 2016. Pt evaluation today including: conversation w/ patient, physical exam, lab review, review of studies, review of inpatient medication list, conversation w/ attending History of Present Illness His breathing continues to improve, he is almost back to normal today. He has no palpitations and no awareness of his arrhythmia. Social History Smoking Status: Current Every Day Smoker History of Alcohol Use: Yes (DRINKS 2-3 TIMES A WEEK) Review of Systems Respiratory: + shortness of breath, No see HPI, No cough, No sputum, No wheezing, No dyspnea on exertion, No dyspnea at rest, No hemoptysis, No problem reported Cardiac: No see HPI, No chest pain, No orthopnea, No PND, No edema, No claudication, No palpitations, No problem reported Medications Cardiovascular: Item Value Date Time Diltiazem HCl 300 mg 10/15/16 0900 (Cardizem Cd Cap) QAM/PO 10/15/16 0835 Digoxin 0.25 mg 10/14/16 1600 (Lanoxin Tab) DAILY@16/PO 10/14/16 1631 Atorvastatin 20 mg 10/14/16 0900 Calcium QAM/PO 10/15/16 0836 (Lipitor Tab) Aspirin 325 mg 10/13/16 0900 (Ecotrin Tab) DAILY/PO 10/15/16 0836 Metoprolol 100 mg 10/12/16 2100 Succinate BID/PO 10/15/16 0836 (Toprol Xl Tab) Enoxaparin Sodium 40 mg 10/12/16 2000 (Lovenox Inj) DAILY@1999/SC 10/14/16 1934 Objective Vital Signs Past 12 Hours Date Time Temp Pulse Resp B/P (MAP) Pulse Ox O2 Delivery O2 Flow Rate FiO2 10/15/16 08:00 Room Air 10/15/16 07:15 36.4 87 20 155/93 (113) 97 Room Air 10/15/16 07:14 82 16 92 Room Air 10/15/16 04:35 36.6 88 18 134/94 (107) 90 Room Air 10/15/16 04:00 Room Air 10/15/16 00:10 36.4 95 20 123/91 (102) 89 Nasal Cannula 10/15/16 00:00 Room Air Last Recorded Weight-Kilograms: 112.000 Physical Exam Constitutional: Level of Distress: mild distress Lungs: Respiratory effort: no dyspnea Auscultation: breath sounds normal, no wheezing, expiratory wheezing Cardiovascular: Heart Auscultation: no murmurs, no rubs, no gallops, tachycardia, irregular rate rhythm Peripheral Pulses: Bruits: none appreciated Extremities: no edema Data Laboratory Results: Last 24 Hours Test 10/15/16 06:38 White Blood Count 12.95 K/uL Red Blood Count 4.92 M/uL Hemoglobin 15.3 g/dL Hematocrit 44.8 % Mean Corpuscular Volume 91.1 fL Mean Corpuscular Hemoglobin 31.1 pg Mean Corpuscular Hemoglobin Concent 34.2 g/dl Platelet Count 318 K/uL Mean Platelet Volume 9.6 fL Neutrophils (%) (Auto) 75.4 % Lymphocytes (%) (Auto) 14.0 % Monocytes (%) (Auto) 8.5 % Eosinophils (%) (Auto) 1.0 % Basophils (%) (Auto) 0.2 % Neutrophils # (Auto) 9.76 K/uL Lymphocytes # (Auto) 1.81 K/uL Monocytes # (Auto) 1.10 K/uL Eosinophils # (Auto) 0.13 K/uL Basophils # (Auto) 0.03 K/uL RDW Standard Deviation 51.6 fL RDW Coefficient of Variation 15.5 % Immature Granulocyte % (Auto) 0.9 % Immature Granulocyte # (Auto) 0.12 K/uL Sodium Level 138 mmol/L Potassium Level 4.3 mmol/L Chloride Level 103 mmol/L Carbon Dioxide Level 30 mmol/L Anion Gap 5.0 mmol/L Blood Urea Nitrogen 13 mg/dl Creatinine 0.95 mg/dl Est Creatinine Clear Calc Drug Dose 117.0 ml/min Estimated GFR () 104.0 Estimated GFR (Non- 89.8 BUN/Creatinine Ratio 13.2 Random Glucose 88 mg/dl Calcium Level 8.4 mg/dl Magnesium Level 1.6 mg/dl Total Bilirubin 0.8 mg/dl Aspartate Amino Transf (AST/SGOT) 29 U/L Alanine Aminotransferase (ALT/SGPT) 48 U/L Alkaline Phosphatase 133 U/L Total Protein 6.8 gm/dl Albumin 2.5 gm/dl Globulin 4.3 gm/dl Albumin/Globulin Ratio 0.6 Imaging: Echocardiography shows low normal left ventricular function, mild left ventricular hypertrophy with elevated right ventricular pressure (pulmonary hypertension). Telemetry reviewed: Atrial fibrillation with a heart rate averaging around 100 , sometimes faster especially when active. No clear-cut diurnal heart rate variation. Assessment and Plan 1. SOB: He does have low normal left ventricular function and left ventricular hypertrophy, there could be a minor component of diastolic dysfunction contributing but I suspect he does not have a significant contribution from his heart, I suspect it is primarily pulmonary. 2. AF: Pt believes permanent AF. In that case no indication for conversion, but need rate control. TSH is now low, but I doubt his AF is due to hyperthyroidism , but maybe increased HR now is. His digoxin level is a little bit on the low side but acceptable, I will continue a daily digoxin dose. He is now on oral diltiazem starting this morning, therefore he is on digoxin, beta blockade and calcium blockade. He can watch his heart rate control today, if it is adequate I would leave things alone. I think we should consider anticoagulation and I discussed with him, he had been on Xarelto and was happy with that. I am going to add Xarelto to his regimen. He would prefer to follow-up here and I will arrange follow-up for him in 3-4 weeks after discharge. 3. Lung disease: Seems to have lung disease with expiratory wheezing yesterday although his lungs are clear today, he also has some degree of pulmonary hypertension. This may be contributory to his atrial fibrillation 4. Anticoagulation: Although anticoagulation may be optional with his Chads- Vasc score I think I would lean toward anticoagulation. He was on Xarelto in the past and did not have any difficulty with it, his insurance covered it as well. I'm therefore going to start Xarelto today. Thank You
[2016-10-15] MEDS: LEVOFLOXACIN 750 MG TAB PO SCH (11:58)
--- NOTE | 2016-10-15 14:47 | Progress Note ---
Subjective Date of Service: Oct 15, 2016. Subjective Pt evaluation today including: conversation w/ patient, physical exam, chart review, lab review, review of studies, conversation w/ fitness sales consultant, review of inpatient medication list Review of Systems Constitutional: No see HPI, No fever, No chills, No sweats, No weight loss, No weakness, No fatigue, No problem reported Eyes: No see HPI, No worsening of vision, No eye pain, No redness, No discharge , No diplopia, No problem reported ENT: No see HPI, No hearing loss, No unusual epistaxis, No nasal symptoms, No sore throat, No tinnitus, No dental problems, No trouble swallowing, No problem reported Respiratory: No see HPI, No cough, No sputum, No wheezing, No shortness of breath, No dyspnea on exertion, No dyspnea at rest, No hemoptysis, No problem reported Cardiac: No see HPI, No chest pain, No orthopnea, No PND, No edema, No claudication, No palpitations, No problem reported Abdomen: No see HPI, No pain, No nausea, No vomiting, No diarrhea, No constipation, No GI bleeding, No problem reported Musculoskeletal: No see HPI, No joint pain, No muscle pain, No swelling, No calf pain, No problem reported Male : No see HPI, No dysuria, No urinary frequency, No incontinence, No nocturia more than once/night, No slowing stream, No hematuria, No sexual dysfunction, No problem reported Neurologic: No see HPI, No memory loss, No paralysis, No weakness, No numbness/ tingling, No vertigo, No balance problems, No problem reported Psychiatric: No see HPI, No depression symptoms, No anhedonism, No anxiety, No insomnia, No substance abuse, No problem reported Heme: No see HPI, No abnormal bleeding/bruising, No clotting problems, No swollen lymph nodes, No night sweats, No problem reported Endo: No see HPI, No fatigue, No excessive thirst, No excessive urination, No problem reported Skin: No see HPI, No rash, No itch, No new/changing skin lesions, No color change, No bleeding, No problem reported Objective Vital Signs Date Time Temp Pulse Resp B/P (MAP) Pulse Ox O2 Delivery O2 Flow Rate FiO2 10/15/16 12:00 Room Air 10/15/16 11:08 82 16 96 Room Air 10/15/16 11:05 36.8 95 18 136/75 (95) 92 Room Air 10/15/16 08:00 Room Air 10/15/16 07:15 36.4 87 20 155/93 (113) 97 Room Air 10/15/16 07:14 82 16 92 Room Air 10/15/16 04:35 36.6 88 18 134/94 (107) 90 Room Air 10/15/16 04:00 Room Air 10/15/16 00:10 36.4 95 20 123/91 (102) 89 Nasal Cannula 10/15/16 00:00 Room Air 10/14/16 20:00 Room Air 10/14/16 19:33 36.5 107 18 132/79 (96) 94 Nasal Cannula 2.0 10/14/16 19:04 88 16 92 Nasal Cannula 2.0 10/14/16 16:31 114 10/14/16 16:00 Room Air 10/14/16 15:52 36.2 83 18 138/85 (102) 92 Nasal Cannula 2.0 10/14/16 15:22 86 16 92 Nasal Cannula 2.0 Physical Exam General Appearance: WD/WN, no apparent distress Eyes: normal inspection, EOMI ENT: normal ENT inspection, hearing grossly normal Neck: supple, no adenopathy Respiratory/Chest: chest non-tender, lungs clear, normal breath sounds, no respiratory distress Cardiovascular: no edema, no gallop, no JVD, + irregularly irregular Abdomen: normal bowel sounds, non tender, soft Extremities: normal range of motion, non-tender, normal inspection, no pedal edema Neurologic/Psychiatric: pie crust mixer II-XII nml as tested, no motor/sensory deficits, alert, normal mood/affect, oriented x 3 Skin: normal color, warm/dry, no rash Laboratory Results Last 24 Hours Test 10/15/16 06:38 White Blood Count 12.95 K/uL Red Blood Count 4.92 M/uL Hemoglobin 15.3 g/dL Hematocrit 44.8 % Mean Corpuscular Volume 91.1 fL Mean Corpuscular Hemoglobin 31.1 pg Mean Corpuscular Hemoglobin Concent 34.2 g/dl Platelet Count 318 K/uL Mean Platelet Volume 9.6 fL Neutrophils (%) (Auto) 75.4 % Lymphocytes (%) (Auto) 14.0 % Monocytes (%) (Auto) 8.5 % Eosinophils (%) (Auto) 1.0 % Basophils (%) (Auto) 0.2 % Neutrophils # (Auto) 9.76 K/uL Lymphocytes # (Auto) 1.81 K/uL Monocytes # (Auto) 1.10 K/uL Eosinophils # (Auto) 0.13 K/uL Basophils # (Auto) 0.03 K/uL RDW Standard Deviation 51.6 fL RDW Coefficient of Variation 15.5 % Immature Granulocyte % (Auto) 0.9 % Immature Granulocyte # (Auto) 0.12 K/uL Sodium Level 138 mmol/L Potassium Level 4.3 mmol/L Chloride Level 103 mmol/L Carbon Dioxide Level 30 mmol/L Anion Gap 5.0 mmol/L Blood Urea Nitrogen 13 mg/dl Creatinine 0.95 mg/dl Est Creatinine Clear Calc Drug Dose 117.0 ml/min Estimated GFR () 104.0 Estimated GFR (Non- 89.8 BUN/Creatinine Ratio 13.2 Random Glucose 88 mg/dl Calcium Level 8.4 mg/dl Magnesium Level 1.6 mg/dl Total Bilirubin 0.8 mg/dl Aspartate Amino Transf (AST/SGOT) 29 U/L Alanine Aminotransferase (ALT/SGPT) 48 U/L Alkaline Phosphatase 133 U/L Total Protein 6.8 gm/dl Albumin 2.5 gm/dl Globulin 4.3 gm/dl Albumin/Globulin Ratio 0.6 Assessment and Plan 56 years old man with Hx of OSWALDO S/P laryngeoplasty many years ago, transferred from [place] with Afib RVR and CAP. CAP continue levofloxacin Follow-up blood and sputum Cx CXR confirmed left lower lobe pneumonia Follow-up urine legionella Follow-up strept screen Afib RVR continue cardizem oral / metoprolol / digoxin cardiology consult appreciated Started on xarelto today Hyperlipidemia. Continue his omega-3, switch simvastatin to lipitor Hypotestosterone. continue supplement as an outpatient Anxiety. Continue his venlafaxine. Mediastinal adenopathy,likely reactive Tobacco abuse. Hopefully, he will be able to quit smoking. Nicotine Mild diabetes A1c is 6.7 / LDL is 90 Hypertension, patient stated that every time he went to the doctor systolic blood pressure was more than 150 Low TSH needs to be investigated as an outpatient, continue beta darell for now , this needs to be repeated after patient is stable Morbid obesity secondary to increased caloric intake with BMI of 33
[2016-10-15] MEDS ORDERED: RIVAROXABAN 20 MG TAB PO SCH (15:00)
[2016-10-15] MEDS: DIGOXIN 0.25 MG TAB PO SCH (16:52)
[2016-10-15] MEDS ORDERED: NURSING VERBAL MED ORDER ONE (18:30)
[2016-10-16 00:38] VITALS: BP 159/75; PULSE 99; TEMP 36.8; O2SAT 92
[2016-10-16 04:37] VITALS: BP 142/82; PULSE 83; TEMP 36.5; O2SAT 92
[2016-10-16 07:02] LABS: BASO % 0.2 %; BASO ABS # 0.03 K/uL (0-0.2); COMPLETE YES; EOS % 0.9 %; HEMATOCRIT 49.9 % (42-52); IG% 0.8 %; LYMPH % 11.1 %; LYMPH ABS # 1.54 K/uL (1.2-3.4); MEAN CELL VOLUME 91.2 fL (80-100); MEAN CORPUSCULAR HEMOGLOBIN 31.3 pg (25-34); MEAN CORPUSCULAR HGB CONC 34.3 g/dl (32-36); MEAN PLATELET VOLUME 9.6 fL (7.4-10.4); MONO % 7.8 %; NEUT % 79.2 %; PLATELET COUNT 336 K/uL (130-400); RED BLOOD COUNT 5.47 M/uL (4.7-6.1); WHITE BLOOD COUNT 13.83 K/uL (4.8-10.8)
[2016-10-16 07:11] VITALS: PULSE 84; O2SAT 92
[2016-10-16] MEDS: ALBUT/IPRATROP 3MG/0.5MG NEB 3 ML VIAL INH SCH ×2 (07:12→11:12)
[2016-10-16] MEDS: VENLAFAXINE HCL XR 75 MG CAPXR PO SCH (07:21)
[2016-10-16] MEDS: ASPIRIN 325 MG ECTAB PO SCH (07:21)
[2016-10-16] MEDS: METOPROLOL SUCC 50MG EXT REL TAB PO SCH (07:21)
[2016-10-16] MEDS: PANTOprazole SOD 40 MG TAB PO SCH (07:21)
[2016-10-16] MEDS: DILTIAZEM HCL 300 MG CAPCR PO SCH (07:21)
[2016-10-16] MEDS: ATORVASTATIN 20 MG TAB PO SCH (07:21)
[2016-10-16] MEDS: MAGNESIUM OXIDE 400 MG TAB PO SCH ×2 (07:22)
[2016-10-16] MEDS: MULTIVITAMIN TAB PO SCH (07:22)
[2016-10-16] MEDS: ASCORBIC ACID 500 MG TAB PO SCH (07:23)
[2016-10-16] MEDS: OMEGA-3 (PURIFIED FISH OIL) 1 GM CAP PO SCH ×2 (07:23→14:00)
[2016-10-16] MEDS: ZINC SULFATE 220 MG CAP PO SCH (07:23)
[2016-10-16 07:30] VITALS: BP 149/89; PULSE 88; TEMP 36.8; O2SAT 90
[2016-10-16 07:32] LABS: BUN/CREATININE RATIO 10.1 (10-20); MAGNESIUM 1.8 mg/dl (1.8-2.4); POTASSIUM 4.4 mmol/L (3.5-5.1)
[2016-10-16] MEDS: LEVOFLOXACIN 750 MG TAB PO SCH (10:39)
[2016-10-16 11:12] VITALS: BP 142/94; PULSE 80; PULSE 84; TEMP 36.6; O2SAT 91; O2SAT 92
[2016-10-16] MEDS ORDERED: XRL20 PO (13:41)
[2016-10-16] MEDS ORDERED: LNX25 PO (13:41)
[2016-10-16] MEDS ORDERED: LVQ750 PO (13:41)
[2016-10-16] MEDS ORDERED: CRDCD300 PO (13:41)
[2016-10-16] MEDS ORDERED: LPT20 PO (13:41)
--- NOTE | 2016-10-16 13:45 | Discharge Instructions ---
Discharge Instructions Date of Service Oct 16, 2016. Admission Reason for Admission: Afib,Respiratory Failure Discharge Discharge Diagnosis / Problem: A fib / pneumonia Discharge Goals Goal(s): Decrease discomfort Activity Recommendations Activity Limitations: resume your previous activity . Instructions / Follow-Up Instructions / Follow-Up Follow up with PCP in 1-2 weeks will need repeat thyroid function test will need sleep study as an out patient Current Hospital Diet Patient's current hospital diet: low cholesterol , low caloric diet Discharge Diet Recommended Diet: AHA Diet (Heart Healthy), Diabetes Type 2 Diet Pending Studies Studies pending at discharge: no Laboratory Results Hemoglobin A1c Test 10/13/16 06:53 Range/Units Estimated Average Glucose 146 mg/dl Hemoglobin A1c 6.7 H 4.5-5.6 % Lipid Panel Test 10/14/16 06:39 Range/Units Triglycerides Level 123 0-150 mg/dl Cholesterol Level 145 0-200 mg/dl HDL Cholesterol 30 mg/dl Cholesterol/HDL Ratio 4.8 LDL Cholesterol, Calculated 90 mg/dl Medical Emergencies . Who to Call and When: Medical Emergencies: If at any time you feel your situation is an emergency, please call 911 immediately. . Non-Emergent Contact Non-Emergency issues call your: Primary Care Provider, Laborer Syrup Machine Call Non-Emergent contact if: temperature is above 100.5, your pain is worsening . . "Provider Documentation" section prepared by Cara Neves. . VTE Core Measure Inpt VTE Proph given/why not?: Unfractionated heparin SQ
[2016-10-16] MEDS ORDERED: LCTX OR (13:54)
[2016-10-16 14:03] VITALS: BP 142/94; PULSE 80; TEMP 36.6; O2SAT 91
--- NOTE | 2016-10-16 14:18 | Cardiology Follow-Up ---
Subjective Date of Service: Oct 16, 2016. Pt evaluation today including: conversation w/ patient, physical exam, lab review, review of studies, review of inpatient medication list History of Present Illness This is a very pleasant 56 yo gentleman with a history of what sounds like SVT for which he had ablation in [place] around 1991, that sounds as though it was successful and he has had no recurrence of that particular arrhythmia. He has however had AF since about 8 yrs ago, it does not bother him much but he believes it to be permanent but I do not have documentation of that. He has been followed in [place], he has been on Xarelto in the past but it was stopped evidently due to a low chads-vasc score, not for bleeding.. He had a cardiac catheterization performed in 2012 with normal coronaries. He is not generally aware of his arrhythmia, including severe were his heart rate is fast. He presented with 2 wks of SOB to [facility], and subsequently was transferred here for care. He is feeling relatively well today, much better than on admission. He is not aware of palpitations and does not of chest discomfort or significant shortness of breath. Social History Smoking Status: Current Every Day Smoker History of Alcohol Use: Yes (DRINKS 2-3 TIMES A WEEK) Review of Systems Respiratory: No see HPI, No cough, No sputum, No wheezing, No shortness of breath, No dyspnea on exertion, No dyspnea at rest, No hemoptysis, No problem reported Cardiac: No see HPI, No chest pain, No orthopnea, No PND, No edema, No claudication, No palpitations, No problem reported Medications Cardiovascular: Item Value Date Time Rivaroxaban 20 mg 10/15/16 1500 (Xarelto Tab) QDD/PO 10/15/16 1651 Diltiazem HCl 300 mg 10/15/16 0900 (Cardizem Cd Cap) QAM/PO 10/16/16 0721 Digoxin 0.25 mg 10/14/16 1600 (Lanoxin Tab) DAILY@16/PO 10/15/16 1652 Atorvastatin 20 mg 10/14/16 0900 Calcium QAM/PO 10/16/16 0721 (Lipitor Tab) Aspirin 325 mg 10/13/16 0900 (Ecotrin Tab) DAILY/PO 10/16/16 0721 Metoprolol 100 mg 10/12/16 2100 Succinate BID/PO 10/16/16 0721 (Toprol Xl Tab) Objective Vital Signs Past 12 Hours Date Time Temp Pulse Resp B/P (MAP) Pulse Ox O2 Delivery O2 Flow Rate FiO2 10/16/16 14:03 36.6 80 18 91 Room Air 10/16/16 12:00 Room Air 10/16/16 11:12 80 12 92 Room Air 10/16/16 11:12 36.6 84 18 142/94 (110) 91 Room Air 10/16/16 08:00 Room Air 10/16/16 07:30 36.8 88 18 149/89 (109) 90 Room Air 10/16/16 07:11 84 16 92 Room Air 10/16/16 04:37 36.5 83 16 142/82 (102) 92 10/16/16 04:23 Room Air Last Recorded Weight-Kilograms: 112.000 Physical Exam Constitutional: Level of Distress: mild distress Lungs: Respiratory effort: no dyspnea Auscultation: breath sounds normal, no wheezing, expiratory wheezing Cardiovascular: Heart Auscultation: no murmurs, no rubs, no gallops, tachycardia, irregular rate rhythm Peripheral Pulses: Bruits: none appreciated Extremities: no edema Data Laboratory Results: Last 24 Hours Test 10/16/16 06:39 White Blood Count 13.83 K/uL Red Blood Count 5.47 M/uL Hemoglobin 17.1 g/dL Hematocrit 49.9 % Mean Corpuscular Volume 91.2 fL Mean Corpuscular Hemoglobin 31.3 pg Mean Corpuscular Hemoglobin Concent 34.3 g/dl Platelet Count 336 K/uL Mean Platelet Volume 9.6 fL Neutrophils (%) (Auto) 79.2 % Lymphocytes (%) (Auto) 11.1 % Monocytes (%) (Auto) 7.8 % Eosinophils (%) (Auto) 0.9 % Basophils (%) (Auto) 0.2 % Neutrophils # (Auto) 10.95 K/uL Lymphocytes # (Auto) 1.54 K/uL Monocytes # (Auto) 1.08 K/uL Eosinophils # (Auto) 0.12 K/uL Basophils # (Auto) 0.03 K/uL RDW Standard Deviation 50.8 fL RDW Coefficient of Variation 15.3 % Immature Granulocyte % (Auto) 0.8 % Immature Granulocyte # (Auto) 0.11 K/uL Sodium Level 135 mmol/L Potassium Level 4.4 mmol/L Chloride Level 100 mmol/L Carbon Dioxide Level 32 mmol/L Anion Gap 3.0 mmol/L Blood Urea Nitrogen 10 mg/dl Creatinine 1.00 mg/dl Est Creatinine Clear Calc Drug Dose 111.1 ml/min Estimated GFR () 97.8 Estimated GFR (Non- 84.4 BUN/Creatinine Ratio 10.1 Random Glucose 101 mg/dl Calcium Level 9.0 mg/dl Magnesium Level 1.8 mg/dl Chemistry Specimen Hemolysis Telemetry reviewed: He remains in atrial fibrillation with a somewhat rapid heart rate, averaging around 110 bpm. Assessment and Plan 1. SOB: Evidently pulmonary in origin, does not appear to be cardiac in nature. 2. AF: Pt believes he has permanent AF. In that case no indication for conversion, but need rate control. TSH is now low, but I doubt his AF is due to hyperthyroidism, but maybe increased HR now is related to it. At this point I need to get his old records to see what has been done for his atrial fibrillation, but he is already on a lot of rate control medications and I think his thyroid should be treated and if he remains fast we need to consider other options. If he has permanent atrial fibrillation we may need to consider AV block procedures, if it is not permanent we may need to consider cardioversion or antiarrhythmic medications, however we should wait 3 or 4 weeks since he was not anticoagulated on admission. We can arrange this as an outpatient. 3. Lung disease: Seems to have lung disease, may be contributory to his atrial fibrillation 4. Anticoagulation: We started Xarelto yesterday, he seems to be tolerating that well. I would recommend continuing it at least for now. Thank You
--- NOTE | 2016-10-16 19:28 | Discharge Summary ---
Discharge Summary Date of Service Oct 16, 2016. Discharge Summary Admission Date: Oct 12, 2016 at 15:45 Discharge Date: Oct 16, 2016 Discharge Disposition: Home Principal Diagnosis: community-acquired pneumonia Problems/Secondary Diagnoses: A. fib with RVR Obesity Clinically suspected obstructive sleep apnea Hypertension Borderline diabetes Medication Reconciliation New Medications: Lactobacillus Acidophilus (Floranex) 1 Tab Tab 2 TAB OR TID for 7 Days, #42 TAB Atorvastatin (Atorvastatin Calcium) 20 Mg Tab 20 MG PO QAM for 30 Days, #30 TAB Digoxin (Digoxin) 0.25 Mg Tab 0.25 MG PO DAILY@16 for 30 Days, #30 TAB Diltiazem HCl (Diltiazem Cd) 300 Mg Capcr 300 MG PO QAM for 30 Days, #30 CAP Levofloxacin (Levofloxacin) 750 Mg Tab 750 MG PO DAILY@11 for 2 Days, #2 TAB start / Rivaroxaban (Xarelto) 20 Mg Tab 20 MG PO QDD for 30 Days, #30 TAB 3 Refills take it daily with dinner Continued Medications: Ascorbic Acid (Vitamin C) 1,000 Mg Tab 2 TAB PO DAILY, #1 TAB Magnesium Oxide (Magnesium-Oxide) 400 Mg Tab 1 TAB PO BID, #1 TAB Metoprolol Succinate (Toprol Xl) 100 Mg Tabcr 1 TAB PO BID for 30 Days, #60 TAB 5 Refills Multivitamins (Daily Mayte) 1 Tab Tab 1 TAB PO DAILY, #1 TABS Hosmer-3 Fatty Acids (Hosmer 3) 1 Cap Cap 1 CAP PO TID, #1 CAP Omeprazole (Prilosec) 20 Mg Cap 1 CAP PO DAILY for 30 Days, #30 CAP 5 Refills Testosterone Cypionate (Testosterone Cypionate) 200 Mg/Ml Inj 50 MG IM UD, #1 50mg IM every other week Venlafaxine HCl (Venlafaxine HCl ER) 75 Mg Capcr 1 CAP PO DAILY, #1 TABS Zinc Sulfate (Zinc Sulfate) 220 Mg Cap 220 MG PO BID, #1 CAP Discontinued Medications: Aspirin (Aspirin) 325 Mg Ectab 1 TAB PO DAILY, #1 TAB Diltiazem Hcl Coated Beads (Diltiazem Hcl Er) 120 Mg Cap 1 CAP PO DAILY for 90 Days, #90 CAP 1 Refill Simvastatin (Zocor) 20 Mg Tab 1 TAB PO HS for 30 Days, #30 TAB 5 Refills Referrals At Discharge Follow up Referrals: Appeals Reviewer Veteran Referral - Within 1-2 Weeks with Grupo Salgado M.D. Discharge Exam Review of Systems: Constitutional: No fever, No chills, No sweats, No weight loss, No weakness , No fatigue, No problem reported Eyes: No worsening of vision, No eye pain, No redness, No discharge, No diplopia, No problem reported ENT: No hearing loss, No unusual epistaxis, No nasal symptoms, No sore throat, No tinnitus, No dental problems, No trouble swallowing, No problem reported Respiratory: No cough, No sputum, No wheezing, No shortness of breath, No dyspnea on exertion, No dyspnea at rest, No hemoptysis, No problem reported Cardiovascular: No chest pain, No orthopnea, No PND, No edema, No claudication, No palpitations, No problem reported Abdomen: No pain, No nausea, No vomiting, No diarrhea, No constipation, No GI bleeding, No problem reported Musculoskeletal: No joint pain, No muscle pain, No swelling, No calf pain, No problem reported Genitourinary - Male: No hematuria, No dysuria, No urinary frequency, No urinary urgency, No urinary hesitancy, No urinary retention, No urinary incontinence, No penile discharge, No lesions, No impotence, No problem reported Neurologic: No memory loss, No paralysis, No weakness, No numbness/tingling , No vertigo, No balance problems, No problem reported Psychiatric: No depression symptoms, No anhedonism, No anxiety, No insomnia , No substance abuse, No problem reported Endocrine: No fatigue, No excessive thirst, No excessive urination, No problem reported Hematologic / Lymphatic: No abnormal bleeding/bruising, No clotting problems , No swollen lymph nodes, No night sweats, No problem reported Integumentary: No rash, No itch, No new/changing skin lesions, No color change, No bleeding, No problem reported Physical Exam: General Appearance: WD/WN, no apparent distress Eyes: normal inspection, EOMI ENT: normal ENT inspection, hearing grossly normal Neck: supple Respiratory/Chest: chest non-tender, lungs clear, normal breath sounds, no respiratory distress, no accessory muscle use Cardiovascular: no edema, no gallop, no JVD, no murmur, + irregularly irregular Abdomen / GI: normal bowel sounds, non tender, soft, no organomegaly, no pulsatile mass, occult blood negative Extremities: normal inspection, no calf tenderness, normal capillary refill , no pedal edema Neurologic/Psychiatric: skein inspector II-XII nml as tested, no motor/sensory deficits , alert, normal mood/affect, normal reflexes Skin: normal color, warm/dry, no rash Hospital Course 56 years old man with Hx of OSWALDO S/P laryngeoplasty many years ago, transferred from [place] with Afib RVR and CAP. He was started on levofloxacin IV 750 mg daily for his pneumonia. Started on Cardizem drip for his atrial fibrillation. His simvastatin was switched to Lipitor 12 point interaction was Cardizem. Chest x-ray has been done and confirmed left lower lobe pneumonia. Sputum culture was sent on the antibiotic and showed normal isis Appeals Reviewer Veteran was consulted since his atrial fibrillation with RVR was very resistant. He was continued on metoprolol 100 mg twice a day. Appeals Reviewer Veteran started him the digoxin. TSH was checked and was 0.18 which might be contributing to his A. fib with RVR , also could be low because of acute illness with his pneumonia. He was instructed to check thyroid function test within 2 weeks. As per discussion with mentally retarded teacher and also with the patient and was decided to start him on anticoagulation, he choose xarelto, which was initiated while he is in the hospital He was noticed to have adenopathy,likely reactive Mild diabetes A1c is 6.7 / LDL is 90 2D echo was done results are attached below. Patient was within acceptable medical condition for discharge today. He will follow-up with mentally retarded teacher in 2 weeks. 2D echo Low normal overall left ventricular systolic function. Mild concentric left ventricular hypertrophy. Moderate biatrial dilatation. Trace aortic and pulmonic regurgitation. Trace mitral regurgitation. Mild to moderate tricuspid regurgitation. Moderately elevated estimated right ventricular systolic pressure. Elevated central venous pressure. Total Time Spent: Greater than 30 minutes This includes examination of the patient, discharge planning, medication reconciliation, and communication with other providers. Discharge Instructions Please refer to the electronic Patient Visit Report (Discharge Instructions) for additional information.
== END 2016-10-16 15:56 | disposition home or self-care (01) | DRG 195 ==
LOC: C.MSICU 15:45 → C.2T 18:31
PROVIDERS: ADMIT Family Medicine; ATTEND Internal Medicine
DX: J18.9 Pneumonia, unspecified organism (principal); I27.2 Other secondary pulmonary hypertension; R94.6 Abnormal results of thyroid function studies; E83.42 Hypomagnesemia; I48.2 Chronic atrial fibrillation; I10 Essential (primary) hypertension; R73.03 Prediabetes; R59.9 Enlarged lymph nodes, unspecified; E29.1 Testicular hypofunction; E78.5 Hyperlipidemia, unspecified; G47.33 Obstructive sleep apnea (adult) (pediatric); F41.9 Anxiety disorder, unspecified; F17.210 Nicotine dependence, cigarettes, uncomplicated; E66.01 Morbid (severe) obesity due to excess calories; Z68.33 Body mass index [BMI] 33.0-33.9, adult; Z79.82 Long term (current) use of aspirin; Z79.899 Other long term (current) drug therapy